=== PATIENT | male | born 1975 | race Caucasian/White ===

== ENCOUNTER 2020-05-13 11:59 | Emergency (ER) | payer BC, SELFPAY ==
[2020-05-13 12:09] VITALS: BP 146/98; PULSE 63; RESP 20; O2SAT 98
[2020-05-13 13:10] VITALS: BP 121/76; PULSE 50; RESP 18; O2SAT 99
--- NOTE | 2020-05-13 13:15 | DI.RAD_ITS ---
EXAM: XR LUMBAR SPINE COMPLETE CLINICAL HISTORY: low back pain. TECHNIQUE: 2D digital imaging was performed. COMPARISON: No exams were available for comparison FINDINGS: BONES: No fracture or destructive lesion. Vertebral bodies are unremarkable. No facet hypertrophy king ntified. DISKS: Intervertebral disc spaces are maintained. ALIGNMENT: Lumbar spinal alignment is within normal limits. SOFT TISSUE: Normal. IMPRESSION: Unremarkable radiographs of the lumbar spine. DATA REPOSITORY: RADIATION DOSE DELIVERED:
[2020-05-13] MEDS: Lidocaine 5% Patch 1 PATCH TP (13:32)
[2020-05-13 14:26] VITALS: BP 120/73; PULSE 47; RESP 18; O2SAT 99
[2020-05-13 15:30] VITALS: BP 125/76; PULSE 45; RESP 20; TEMP 36.7; O2SAT 100
--- NOTE | 2020-05-16 08:55 | ED.GENADUL_ITS ---
Discharge Plan Disposition Patient Disposition: HOME Condition: Stable Discharge Details Clinical Impression: Back pain Primary Care Provider: None,None ED Provider: Ana Laura Rojo Home Meds and New Rx's Prescriptions: New prednisone 20 mg tablet 60 mg PO DAILY Qty: 12 RF: 0 cyclobenzaprine 10 mg tablet 10 mg PO TID PRNQty: 9 RF: 0 lidocaine [Lidoderm] 5 % adhesive patch,medicated 1 patch topical DAILY Qty: 15 RF: 0 Continued citalopram 40 mg Tablet 40 mg PO DAILY RF: 0 ibuprofen 200 mg Capsule 600 mg PO PRN PRNRF: 0 Discharge Instructions Instructions: Prednisone (By mouth), Cyclobenzaprine (By mouth), Back Pain (ED) Additional Instructions: Please return immediately to the emergency department if you develop any new or worsening symptoms, if your condition does not improve as expected, or if you become otherwise concerned. It is extremely important that you call soon as possible to make an appointment to be seen in follow-up for this visit by your primary care doctor. Stand Alone Forms: Work Release Discharge Data Discharge Date/Time-TO BE ENTERED AT DEPARTURE: 05/13/20 16:15 Medical Decision Making Manfred Sommer is a 45 y/o man without reported h/o major medical problems who presented to the emergency department with back pain that began one week ago, worse over the past two days, no trauma. On exam Pt is well and non-toxic appearing. Right lumbar paraspinal TTP that reproduces pain. Motor and sensation (including saddle region) intact b/l LEs. Bladder scan shows 350cc, last urination 1.5 hours ago. Concern for likely muscle spasm, disc herniation, other MSK etiology. Exam/hx at this time not c/w cauda equina syndrome, epidural abscess, epidural hematoma, other cord compression, infectious discitis, sepsis, other infectious pathology, other acute emergent life/limb threatening pathology. Plan for xrays for r/o pathologic fracture (unlikely), post-void residual, lidoderm patch. xrays okay. Post-void residual 0cc per nursing. Pt reports some relief with lidoderm patch. Plan for steroids, (1st dose here) flexeril (for home use as Pt is driving), lidoderm patch. I had a lengthy discussion with Patient regarding return to emergency department precautions, home care, and importance of outpatient follow-up. Pt verbalizes understanding of the plan and is amenable. Patient discharged to home with clear plan for outpatient follow-up. All questions were answered. Disposition decision was made weighing the risks and benefits of hospitalization versus outpatient treatment, the risk for further decompensation, and the patient's wishes. Medical Records Medical records reviewed: Yes I reviewed the patient's medical records. Imaging Data Radiologic Study: Attestation: I personally reviewed and interpreted this imaging study as follows: Radiologist's impression: EXAM: XR LUMBAR SPINE COMPLETE CLINICAL HISTORY: low back pain. TECHNIQUE: 2D digital imaging was performed. COMPARISON: No exams were available for comparison FINDINGS: BONES: No fracture or destructive lesion. Vertebral bodies are unremarkable. No facet hypertrophy identified. DISKS: Intervertebral disc spaces are maintained. ALIGNMENT: Lumbar spinal alignment is within normal limits. SOFT TISSUE: Normal. IMPRESSION: Unremarkable radiographs of the lumbar spine. HPI General Mode of arrival: ambulatory . Date/Time Provider Initiated Documentation: 05/13/20 12:17 . Limitations to Documentation: no limitations . Information obtained by: patient, RN notes reviewed and old records reviewed . HPI Narrative: Manfred Sommer is a 45 y/o man without reported h/o of major medical problems who presents to the emergency department with back pain. Pt reports that he has had back pain on and off for the past few years, but not as severe as this. Pt reports that approx one week ago he was cutting and stacking wood, and developed low right-sided back pain. Pain was tolerable and consistent with prior episodes of back pain. Pain persisted, and then 2 days ago Pt was lifting objects and gradually developed worsening pain in his right lower back. Pain radiates into right buttock. Pt reports that pain is worse with walking and sitting, to the point of making walking difficult. Pt reports that he has no pain when lying flat. He denies any other pain, fever, SOB, cough, vomiting, diarrhea, constipation, numbness including saddle anesthesia, weakness, difficulty with urination or changes in urination, change in erectile function. Eating and drinking as usual. No recent illness. Denies any h/o IV drug use. Not immunocompromised. Related Data Home Medications Medication Instructions Recorded Confirmed citalopram 40 mg PO DAILY 05/13/20 05/13/20 cyclobenzaprine 10 mg PO TID PRN #9 tab 05/13/20 ibuprofen 600 mg PO PRN PRN 05/13/20 05/13/20 lidocaine [Lidoderm] 1 patch TOPICAL DAILY #15 ea 05/13/20 prednisone 60 mg PO DAILY #12 tab 05/13/20 Previous Rx's Medication Instructions Recorded cyclobenzaprine 10 mg PO TID PRN #9 tab 05/13/20 lidocaine [Lidoderm] 1 patch TOPICAL DAILY #15 ea 05/13/20 prednisone 60 mg PO DAILY #12 tab 05/13/20 Allergies Allergy/AdvReac Type Severity Reaction Status Date / Time codeine AdvReac Other (See Unverified 05/13/20 12:12 Comment) General Stated Complaint: Nk/Back Pain AINSLEY: 3 Review of Systems Narrative: Constitutional: denies fevers Eyes: denies eye pain ENT: denies ear pain, dental pain, sore throat Cardiovascular: denies chest pain, edema Respiratory: denies SOB, cough GI: denies abdominal pain, vomiting, diarrhea, constipation : denies flank pain, urinary retention, urinary hesitancy, urinary frequency, incontinence, erectile changes MSK: denies neck pain, arthralgias, myalgias, reports back pain Skin: denies rash Neuro: denies headaches, numbness of the lower extremities, saddle or groin numbness, weakness of the lower extremities PFSH Social History Smoking/Tobacco Use Status: Former Tobacco Use Smoking risk assessment performed?: Yes Alcohol Intake: current Alcohol Intake frequency: 0-2 drinks per day Drug use: Never Substance use type: does not use Do you feel safe at home: Yes Do you feel safe in your relationship?: Yes Exam Narrative Exam Narrative: Constitutional: well and [id number], pleasant, conversing normally HENT: head atraumatic/normocephalic/normal inspection, mucous membranes moist Eyes: conjunctiva normal, sclera normal, pupils 3mm b/l Neck: no stridor, normal ROM, trachea midline Chest: normal inspection Resp: normal work of breathing, speaking in full sentences Cardio: normal rate, normal rhythm GI: abdomen soft, non-tender, non-distended Back: normal inspection, no rash, no thoracic or lumbar vertebral tenderness to palpation, no left thoracic/lumbar paraspinal TTP, right lumbar paraspinal TTP without overlying skin changes, positive straight leg test b/l Skin: warm, dry, normal color, no rash Neuro: alert, not altered, grossly non-focal, motor 5/5 b/l LEs, normal sensation b/l LEs, normal tone, normal gait Ext: no edema, moving all extremities equally Psych: normal mood, normal affect, normal behavior Course Vital Signs Vital signs: Vital Signs Pulse 63 05/13/20 12:09 Respiratory Rate 20 05/13/20 12:09 Blood Pressure 146/98 H 05/13/20 12:09 Pulse Oximetry 98 05/13/20 12:09 Temperature 36.7 C 05/13/20 15:30 Pulse 45 L 05/13/20 15:30 Respiratory Rate 20 05/13/20 15:30 Respiratory Effort Non-Labored 05/13/20 12:30 Blood Pressure 125/76 05/13/20 15:30 Blood Pressure Position Sitting 05/13/20 12:09 Pulse Oximetry 100 05/13/20 15:30 Oxygen Delivery Method Room Air 05/13/20 15:30 Oxygen Flow Rate 0 05/13/20 15:30 Pain Level 4 05/13/20 15:30
== END 2020-05-13 16:15 | disposition home or self-care (01) ==
PROVIDERS: Emergency Provider Student in an Organized Health Care Education/Training Program
DX: M54.5 Low back pain (principal)
CPT/HCPCS: 36415; 99283; 72110